=== PATIENT | female | born 1945 | race Caucasian/White ===

== ENCOUNTER 2022-01-27 15:45 | Emergency (ER) | payer MEDICARE, SELFPAY ==
[2022-01-27 16:06] VITALS: BP 123/69; PULSE 54; RESP 18; TEMP 35.9; O2SAT 96; BMI 23.4
--- NOTE | 2022-01-27 16:28 | XR_ITS ---
Patient: SHAZIA MARQUIS Facility:?[facility] Patient ID:?[id number] Site Patient ID:?[id number]. Site :?[id number] Study:?XRay-Extremity Left Forearm 2v-01/27/2022 5:11:12 PM Ordering Physician:?Marty Russ Final Report: INDICATION: Left forearm pain post fall. TECHNIQUE: Two views of the left forearm. COMPARISON: None. FINDINGS: Acute near-anatomically aligned fracture of the distal ulnar shaft. Otherwise unremarkable. IMPRESSION: Acute near-anatomically aligned distal ulnar shaft fracture. Dictated by Asif Pollard MD @ 01/27/2022 5:38:54 PM Signed by:?Asif Pollard MD @01/27/2022 5:38:54 PM (Electronic Signature)
[2022-01-27] MEDS: KETOROLAC 30 MG/ML inj IM (16:40)
--- NOTE | 2022-01-27 17:51 | ED_ITS ---
HPI - Extremity Injury (Upper) General Chief Complaint: Extremity Pain/Injury, Upper Stated Complaint: Fell hurt left wrist Time Seen by Provider: 01/27/22 16:00 History of Present Illness HPI narrative: Castillo is a 76yo female patient that presents to the ED via POV with acute complaint of fall at 1430. The patient denies striking her head or LOC. The patient states she has known h/o parkinson's disease, missed a step, and fell down two steps to a seated position. She denies injury or trauma, apart from to her left forearm. The patient states that she has no numbness, tingling, or w eakness. The patient denies decreased ROM, but she reports pain with ROM exercises. The patient denies other injury or acute concerns. Her fall was witnessed by her , who is present at bedside. Castillo has taken no medications prior to arrival. In addition, the patient is on blood thinners. See nursing notes for additional details. MD complaint: injury to: left and forearm Related Data Home Medications Medication Instructions Recorded Confirmed apixaban 5 mg tablet (Eliquis) 5 mg PO BID 01/27/22 01/27/22 diltiazem HCl 240 mg 240 mg PO Q24H 01/27/22 01/27/22 capsule,extended release 24 hr pantoprazole 40 mg tablet,delayed 40 mg PO DAILY 01/27/22 01/27/22 release ramipril 10 mg capsule 35 mg PO QWEEK 01/27/22 01/27/22 venlafaxine 150 mg tablet,extended 300 mg PO DAILY 01/27/22 01/27/22 release 24 hr Previous Rx's Medication Instructions Recorded tramadol 50 mg tablet (Ultram) 50 mg PO BID PRN pain #15 tabs 01/27/22 Allergies Allergy/AdvReac Type Severity Reaction Status Date / Time No Known Drug Allergies Allergy Verified 01/27/22 16:08 Review of Systems Const: Denies: fever, chills, fatigue or malaise Eyes: Denies: change in vision or blurry vision ENMT: Denies: neck pain Cardio: Denies: chest pain, palpitations, lightheadedness or shortness of breath with exertion Resp: Denies: shortness of breath GI: Denies: abdominal pain or nausea Musculo: Reports: extremity pain, extremity swelling and limited range of motion; Denies: back pain or neck pain Integ/Breast: Denies: rash or redness Neuro: Reports: lack of coordination (Patient has known history of Parkinson's disease); Denies: headache, numbness in extremities or weakness in extremities Endo: Denies: fatigue PFSH PFS Social History Smoking Status: Never smoker Do you use any of these nicotine containing products: None Second hand tobacco smoke exposure: No How often do you have a drink containing alcohol: 4 or more times a week How many standard drinks containing alcohol do you have on a typical day: 1 or 2 How often do you have six or more drinks on one occasion: Never AUDIT-C Alcohol total score: 4 Non-prescribed substance use: denies use Exam Const: Vital Signs, click to edit/add: Vital Signs - 24 hr 01/27/22 16:06 Temperature 96.6 F L Pulse Rate [Right Pulse Oximeter] 54 L Respiratory Rate 18 Blood Pressure [Ri ght Upper Arm] 123/69 Pulse Oximetry 96 Oxygen Delivery Me thod Room Air Documenting provider has reviewed patient's vital signs: yes Common normals: no apparent distress, oriented x3, no limitations, healthy appearing, alert and well nourished General appearance: cooperative, comfortable and well developed; not in distress Orientation/consciousness: Yes awake, Yes oriented to person and Yes oriented to place HENMT: Common normals: normocephalic, head/scalp atraumatic and hearing grossly normal bilaterally Head and scalp: normocephalic and atraumatic Face and sinus: normal facial exam (within limits of masking) Eye: Common normals: EOMs intact bilaterally General eye: normal appearance of both eyes Neck & C-Spine: Common normals: full ROM, no lymphadenopathy and supple Cervical spine: no pain with cervical ROM, no paracervical muscle spasm and no trapezius muscle tenderness Resp: Common normals: normal respiratory effort, no retractions, no use of accessory muscles and clear to auscultation bilaterally Effort & inspection: able to speak in complete sentences Auscultation: clear to auscultation bilaterally Cardio: Common normals: regular rate, regular rhythm, S1 normal heart sound and S2 normal heart sound Rate: regular rate Rhythm: regular rhythm Heart sounds: S1 normal and S2 normal Back & Pelvis: Common normals: thoracic and lumbar spine normal to inspection and no thoracic nor lumbar tenderness Extremity: Common normals: normal to inspection and no clubbing, cyanosis or edema General: normal exam except as noted Left upper extremity: lower arm (Normal to inspection) Left lower arm: inspection, palpation (Tender to palpation) and neurovascular exam (Sensory and motor intact) Neuro: Common normals: oriented x3, moves all extremities, no focal motor deficits and no sensory deficits noted Sensorium/orientation: awake, alert, oriented to person and oriented to place Gait (neuro): normal gait and shuffling (History of Parkinson's disease) Sensory exam: double simultaneous stimulation for sensation normal Motor exam: strength 5/5 throughout (Although pain noted in right forearm with muscle strength testing) and no movement abnormalities noted Psych: Common normals: mental status grossly normal, thought process normal and activity/motor behavior normal Appearance: grossly normal Thought process: normal thought process Thought content: normal thought content Attention/concentration: attention grossly intact Memory/cognition: memory grossly intact Insight: insight good Judgement: judgment good Skin: Common normals: negative for no wounds Skin images (female): 1. 2 mm nevus forcibly removed, now hemostatic 2. 3 mm skin tear to the medial aspect of the 5th digit Course Course Hospital Course: Rise presented to the emergency department with left upper extremity pain after a fall. The patient had no loss of consciousness and denies striking her head. The fall was witnessed and patient had immediate assistance with standing and presented to the emergency department for evaluation. She was evaluated, imaging was reviewed, and she was treated with IM NSAIDs. The patient reported improvement in discomfort. She was placed in a sugar-tong splint. She was advised to follow-up with her primary care physician and Orthopedics in approximately 1 week for re-evaluation and consideration of casting. The results were discussed, she was given a copy of her imaging, and she and her verbalized understanding. She was given pain medication to assist with control symptoms upon discharge. Vital Signs Vital signs: Initial Vital Signs Temperature 96.6 F L 01/27/22 16:06 Temperature Source Temporal Artery Scan 01/27/22 16:06 Pulse Rate 54 L 01/27/22 16:06 Respiratory Rate 18 01/27/22 16:06 Blood Pressure 123/69 01/27/22 16:06 Blood Pressure Mean 87 01/27/22 16:06 Blood Pressure Position Sitting 01/27/22 16:06 Pulse Oximetry 96 01/27/22 16:06 Oxygen Delivery Method 01/27/22 16:06 Vital Signs Temperature 96.6 F L 01/27/22 16:06 Pulse Rate 54 L 01/27/22 16:06 Respiratory Rate 18 01/27/22 16:06 Blood Pressure 123/69 01/27/22 16:06 Pulse Oximetry 96 01/27/22 16:06 Oxygen Delivery Method 01/27/22 16:06 Temperature 96.6 F L 01/27/22 16:06 Pulse Rate 54 L 01/27/22 16:06 Respiratory Rate 18 01/27/22 16:06 Blood Pressure 123/69 01/27/22 16:06 Pulse Oximetry 96 01/27/22 16:06 Oxygen Delivery Method 01/27/22 16:06 MDM - Extremity Injury (Upper) MDM Narrative Medical decision making narrative: Differential diagnoses considered include: sprain and strain, contusion, nerve root entrapment, radiculopathy, muscle spasm, dislocation, and fracture. Imaging Data Forearm x-ray: Attestation: I have reviewed the pertinent imaging results. My impression: Ulnar fracture, midshaft, minimally displaced. Discharge Plan Discharge Clinical Impression: Fracture of ulnar shaft, closed Patient Disposition: Home, Self-Care Condition: Stable Instructions: Arm Fracture in Adults (ED) Additional Instructions: Thank you for choosing [facility] for your care today. Take NSAID of choice - Advil, Aleve, Motrin, or substitute - scheduled per package directions with food for 72hrs. Take pain medication as prescribed. Use RICE - rest, ice, compression, and elevation - as needed for symptom control. I recommend following up with your primary physician in 1wk for recheck and application of cast. Continue routine activity as tolerated. You may consider topical medications including capsaicin or lidocaine patches to assist with symptom control. If new or worsening symptoms develop or you have any concerns in the meantime, please call your primary care clinic or return to the ER for re-evaluation. Activity Level: No Restrictions and Activity as Tolerated Activity Detail: Use splint and sling to assist with healing and pain control. Discharge Diet: Regular and Heart Healthy (2 gm sodium, low fat) Prescriptions: New tramadol [Ultram] 50 mg tablet 50 mg PO BID PRN (Reason: pain) Qty: 15 0RF No Action Eliquis 5 mg tablet 5 mg PO BID venlafaxine 150 mg tablet extended release 24 hr 300 mg PO DAILY pantoprazole 40 mg tablet,delayed release (DR/EC) 40 mg PO DAILY diltiazem HCl 240 mg capsule,extended release 24hr 240 mg PO Q24H ramipril 10 mg capsule 35 mg PO QWEEK Follow Up/Referrals: Provider,Not a Local [Primary Care Provider] - Stand [facility]
== END 2022-01-27 18:14 | disposition home or self-care (01) ==
PROVIDERS: Emergency Provider Family Medicine
DX: S52.202A Unspecified fracture of shaft of left ulna, initial encounter for closed fracture (principal); W10.9XXA Fall (on) (from) unspecified stairs and steps, initial encounter
CPT/HCPCS: 29125; 73090; 96372; 99283; J1885